=== PATIENT | female | born 1990 | race Caucasian/White ===

== ENCOUNTER 2017-12-21 22:03 | Inpatient (IN) | payer OTHER ==
[2017-12-21] MEDS ORDERED: OXYTOCIN 10 UNIT/ML 1 ML VIAL IM PRN (22:28)
[2017-12-21] MEDS ORDERED: CARBOPROST TROMETHAMINE 250 MCG/ML 1 ML AMP IM PRN (22:28)
[2017-12-21] MEDS ORDERED: LIDOCAINE 0.5% (PF) 5 MG/ML (50 ML SDV) SQ PRN (22:28)
[2017-12-21] MEDS ORDERED: METHYLERGONOVINE 0.2 MG/ML 1 ML AMP IM PRN (22:28)
[2017-12-21] MEDS ORDERED: TERBUTALINE 1 MG/ML VIAL SQ PRN (22:28)
[2017-12-21] MEDS ORDERED: OXYTOCIN 20 UNITS/1000 ML NS 1,000 ML IV SCH (22:30)
[2017-12-21] MEDS: LACTATED RINGERS 1,000 ML IV SCH (22:58)
[2017-12-21 23:06] VITALS: BMI 25.4
[2017-12-21 23:10] LABS: Basophils % (A) 0 %; Eosinophils # (A) 0.2 k/uL (0-0.7); Eosinophils % (A) 2 %; HCT 34.1 % (34.0-46.0); HGB 11.2 gm/dL (11.4-16.0); Lymphocytes # (A) 2.1 k/uL (1.0-4.8); Lymphocytes % (A) 18 %; MCH 28.7 pg (25.0-35.0); MCHC 32.9 g/dL (31.0-37.0); MCV 87.4 fL (80.0-100.0); Monocytes # (A) 0.6 k/uL (0-1.0); Monocytes % (A) 5 %; Neutrophils # (A) 8.9 k/uL (1.3-7.7); Neutrophils % (A) 74 %; Platelet Count 291 k/uL (150-450); RDW 13.7 % (11.5-15.5); WBC 12.1 k/uL (3.8-10.6)
--- NOTE | 2017-12-21 23:59 | P.HPOB ---
History of Present Illness H&P Date: 12/21/17 Chief Complaint: IUP @ 402/7 weeks, active labor This is a 27-year-old 4 para 2011 at 40-2/7 weeks that presents to labor and delivery complaints of painful regular contractions. Patient states she noted contractions early in the day and then they have gotten stronger and more regular. Patient denies vaginal bleeding or loss of fluid. Patient has been receiving routine care with Dr. Kelsey. blood work she has a blood type of Review of Systems Constitutional: Denies chills, Denies fatigue, Denies fever Ears, nose, mouth and throat: Denies headache Cardiovascular: Reports leg edema Respiratory: Denies cough, Denies dyspnea Gastrointestinal: Denies constipation, Denies diarrhea Genitourinary: Reports Past Medical History Past Medical History: No Reported History History of Any Multi-Drug Resistant Organisms: None Reported Past Surgical History: Adenoidectomy, Ear Surgery, Tonsillectomy Past Anesthesia/Blood Transfusion Reactions: No Reported Reaction Past Psychological History: No Psychological Hx Reported Smoking Status: Never smoker Past Alcohol Use History: None Reported Past Drug Use History: None Reported - Past Family History Father Family Medical History: No Reported History Medications and Allergies Home Medications Medication Instructions Recorded Confirmed Type 78/Iron/Folate 1/Dha 1 each PO DAILY 02/09/14 12/21/17 History [Prenate Dha Softgel] Allergies Allergy/AdvReac Type Severity Reaction Status Date / Time No Known Allergies Allergy Verified 12/21/17 22:14 Exam Osteopathic Statement: *. No significant issues noted on an osteopathic structural exam other than those noted in the History and Physical/Consult. Vital Signs Temp Pulse Resp BP Pulse Ox 12/21/17 22:50 96.7 F L 84 16 134/86 100 12/21/17 22:26 96.7 F L 84 16 134/86 100 Intake and Output 12/21/17 12/21/17 12/22/17 14:59 22:59 06:59 Other: Weight 71.668 kg Targeted physical exam was completed in general this is a well-developed well- nourished gravid female in no acute distress, heart is noted to have regular rate and rhythm, lungs are clear to auscultation bilaterally, abdomen is gravid and appropriate for gestational age, on vaginal exam cervix to be 6, 90, -2 station with a bulging bag of water. Amniotomy was performed and clear fluid was obtained. heart tones are noted to be reassuring, with moderate variability, contractions are noted to be every 1-5 minutes. Results Result Diagrams: 12/21/17 22:55 Abnormal Lab Results - Last 24 Hours (Table) 12/21/17 Range/Units 22:55 WBC 12.1 H (3.8-10.6) k/uL Hgb 11.2 L (11.4-16.0) gm/dL Neutrophils # 8.9 H (1.3-7.7) k/uL Assessment and Plan (1) Term Current Visit: Yes Status: Acute Code(s): Z34.80 - ENCOUNTER FOR SUPRVSN OF NORMAL , UNSP TRIMESTER SNOMED Code(s): 51757488 (2) Rh negative, maternal Current Visit: No Status: Acute Code(s): O09.899 - SUPERVISION OF OTHER HIGH RISK PREGNANCIES, UNSP TRIMESTER SNOMED Code(s): 610621864 Plan: We'll admit to labor and delivery for expectant management of labor, patient is uncomfortable and desires epidural which will be placed by anesthesia per patient request. I anticipate spontaneous vaginal delivery this evening.
[2017-12-22] MEDS ORDERED: ACETAMINOPHEN TAB 325 MG TAB PO PRN (01:40)
[2017-12-22] MEDS ORDERED: BENZOCAINE/MENTHOL SPRAY 1 GM/SPRAY AEROSOL TOPICAL PRN (01:40)
[2017-12-22] MEDS ORDERED: SIMETHICONE 80 MG CHEWABLE PO PRN (01:40)
[2017-12-22] MEDS ORDERED: HYDROCORTISONE 2.5% RECTAL CREAM 30 GM TUBE RECTAL PRN (01:40)
[2017-12-22] MEDS ORDERED: diphenhydrAMINE 50 MG CAP PO PRN (01:40)
[2017-12-22] MEDS ORDERED: LANOLIN CREAM 5 GM TUBE TOPICAL PRN (01:40)
[2017-12-22] MEDS ORDERED: ZOLPIDEM 5 MG TAB PO PRN (01:40)
[2017-12-22] MEDS ORDERED: diphenhydrAMINE 50 MG/ML 1 ML VIAL IVP PRN ×2 (01:40)
[2017-12-22] MEDS ORDERED: WITCH HAZEL 1 EACH MED..PAD TOPICAL PRN (01:40)
[2017-12-22] MEDS ORDERED: diphenhydrAMINE 25 MG CAP PO PRN (01:40)
[2017-12-22] MEDS ORDERED: MEASLES-MUMPS-RUBELLA VACC/PF 12,500 UNIT/0.5 ML VIAL SQ ONE (01:43)
[2017-12-22] MEDS ORDERED: OXYTOCIN 20 UNITS/1000 ML NS 1,000 ML IV SCH (01:45)
--- NOTE | 2017-12-22 02:02 | P.PROBDLV ---
Vaginal Delivery Note - . Vaginal Delivery Note: This is a 27-year-old 4 para 2011 at 40-2/7 weeks presented to labor and delivery with complaints of regular strong contractions. Patient was admitted to labor and delivery and requested an epidural for pain control. Patient progressed to complete began pushing and had a normal spontaneous vaginal delivery of a viable female infant at 151, weight of 6 lbs. 14 oz., Apgars of 9 and 9 at one and 5 minutes respectively. Afterwards the placenta was doubly clamped and cut and delivered spontaneously intact with a three- vessel cord. On inspection the patient's vaginal vault no lacerations were noted. The uterus was noted to be firm and below the umbilicus at this time. Estimated blood loss was 200 mL next Patient and infant tolerated delivery well and are resting comfortably
[2017-12-22] MEDS: IBUPROFEN 600 MG TAB PO PRN ×3 (06:12→19:28)
[2017-12-22] MEDS: PRENATAL VIT-IRON-FOLIC ACID 1 EACH CAP PO SCH (08:53)
[2017-12-22] MEDS: SENNOSIDES-DOCUSATE SODIUM 1 EACH TAB PO SCH ×2 (09:00→19:29)
[2017-12-22] MEDS ORDERED: ROPIVACAINE 100 MG, fentaNYL (PF) 200 MCG in SODIUM CHLORIDE 0.9% 76 ML EPIDURAL ONE (10:30)
[2017-12-22] MEDS: LACTATED RINGERS 1,000 ML IV SCH ×2 (21:08→21:09)
[2017-12-23 06:00] LABS: Basophils # (A) 0.1 k/uL (0-0.2); Basophils % (A) 1 %; Eosinophils # (A) 0.3 k/uL (0-0.7); Eosinophils % (A) 3 %; HCT 31.2 % (34.0-46.0); HGB 10.3 gm/dL (11.4-16.0); Lymphocytes # (A) 2.1 k/uL (1.0-4.8); Lymphocytes % (A) 24 %; MCH 28.8 pg (25.0-35.0); MCHC 32.9 g/dL (31.0-37.0); MCV 87.4 fL (80.0-100.0); Mean Platelet Volume 7.3; Monocytes # (A) 0.5 k/uL (0-1.0); Monocytes % (A) 6 %; Neutrophils # (A) 5.7 k/uL (1.3-7.7); Neutrophils % (A) 64 %; Platelet Count 227 k/uL (150-450); RBC 3.57 m/uL (3.80-5.40); RDW 13.8 % (11.5-15.5); WBC 8.9 k/uL (3.8-10.6)
[2017-12-23] MEDS: SENNOSIDES-DOCUSATE SODIUM 1 EACH TAB PO SCH (08:03)
[2017-12-23] MEDS: IBUPROFEN 600 MG TAB PO PRN (08:03)
[2017-12-23 08:50] VITALS: BP 113/81; PULSE 81; RESP 18; TEMP 98.2
--- NOTE | 2017-12-23 10:14 | P.DS ---
Providers Date of admission: 12/21/17 22:32 Expected date of discharge: 12/23/17 Attending physician: Sally Kelsey Primary care physician: Stated None - Discharge Diagnosis(es) (1) Normal spontaneous vaginal delivery Current Visit: No Status: Acute Hospital Course: The patient is a 27-year-old 4 para 2011 admitted at 40-2/7 weeks by good dating parameters perches admitted in active labor with all signs reassuring. Her has been uncomplicated and group B strep status is negative. She was known to be Rh- and received RhoGAM at 28 weeks. On labor and delivery, the patient made good progress on her own to complete and then pushed to a normal spontaneous vaginal delivery of a viable 6 lbs. 14 oz. AB girl with Apgars of 9 at 1 minute and 9 at 5 minutes. Her course was unremarkable with vital signs remaining stable and her temperature was afebrile throughout. She was deemed stable for discharge on day #1 was discharged home to follow-up in the office in 6 weeks' time routinely. Discharge instructions included calling for any significantly increased bleeding or foul-smelling lochia, significantly increased fever or abdominal pain, perineal complaints, breast complaints, or anything else that concerned her. She was additionally instructed to have nothing in the vagina for at least 6 weeks time to include intercourse. She understood her instructions and agrees to follow up as noted above. Discharge medications included continued vitamins as she has opted to breast-feed. She otherwise was to use [id number] analgesic pain medications as needed. Maternal blood type is Rh- and cord blood was sent for evaluation for the necessity of RhoGAM prior to discharge. Rubella status is immune. Procedures: #1. Normal spontaneous vaginal delivery Patient Condition at Discharge: Good Plan - Discharge Summary New Discharge Prescriptions: No Action 78/Iron/Folate 1/Dha [Prenate Dha Softgel] 1 each PO DAILY Discharge Medication List 78/Iron/Folate 1/Dha [Prenate Dha Softgel] 1 each PO DAILY 02/09/14 [ History] Follow up Appointment(s)/Referral(s): Sally Kelsey MD [STAFF PHYSICIAN] - 6 Weeks Discharge Disposition: HOME SELF-CARE
[2017-12-23] MEDS: PRENATAL VIT-IRON-FOLIC ACID 1 EACH CAP PO SCH (12:05)
--- NOTE | 2017-12-25 08:58 | P.MSEPDOC ---
Presenting Problems - Arrival Data Date of Arrival on Unit: 12/21/17 Time of Arrival on Unit: 22:03 Mode of Transport: Wheelchair - Complaint OB-Reason for Admission/Chief Complaint: Possible Onset of Labor Medical History - Information : 4 Para: 2 Term: 2 : 0 Abortions: Spontaneous or Elective: 1 Number of Living Children: 2 - Gestational Age Gestational Age by MALLORY (wks/days): 40 Weeks and 2 Days Review of Systems - Review of Systems Constitutional: No problems Breast: No problems ENT: No problems Cardiovascular: No problems Respiratory: No problems Gastrointestinal: No problems Genitourinary: No problems Musculoskeletal: No problems Neurological: No problems Skin: No problems Vital Signs - Temperature Temperature: 98.2 F Temperature Source: Oral - Pulse Right Brachial Pulse Rate: 81 Pulse Assessment Method: Automatic Cuff - Respirations Respiratory Rate: 18 Oxygen Delivery Method: Room Air - Blood Pressure Right Arm Blood Pressure: 113/81 Blood Pressure Mean: 91 Blood Pressure Source: Automatic Cuff Medical Screen Scoring (Pre) - Cervical Exam Dilation: 4-7 cm = 2 Membranes: Intact - Uterine Contractions Frequency: > or = 36 weeks =2 Duration: N/A Intensity: N/A - Maternal Vital Signs Maternal Temperature: N/A Maternal Blood Pressure: N/A Signs of Preeclampsia: N/A Maternal Respirations: N/A - Pain Assessment Pain Location and Character: Abdomen Pain Scale Used: Numeric (1 - 10) Pain Intensity: 9 Pain Description: *Acute, Cramping Pain Frequency: Intermittent Pain Duration Units: Minutes Pain Behavior: Facial Grimacing, Vocalization Pain Aggravating Factors: Contractions - Maternal Trauma Maternal Trauma: N/A - Assessment Baseline FHR: 125 Heart Rate - NICHD Category: Category I (Normal) = 0 NST: Reactive Position: N/A Station: N/A - Total Score Total Score (Pre): 4 - Level of Risk Level of Risk: Low (0-5) Physician Notification (Pre) - Physician Notified Physician Notified Date: 12/21/17 Physician Notified Time: 22:26 Physician/Practitioner Notifed:: Dr. Bauman Spoke With: Dr. Bauman New Order Received: Yes - Notification Comment Comment: Dr. Bauman called and given report on pt in triage. Pt c/o. vs wnl. gbs neg. Vag exam of 4.5/80/-2. Orders recieved to admit pt to unit. pt may have stadol and or epidural for pain. Disposition - Disposition OB Disposition: Admit, LDRP Suite Discharge Date: 12/23/17 Discharge Time: 12:30 I agree with the RN Medical Screening Exam: Yes Risk & Benefit of care provided described in d/c instruction: Yes Diagnosis: LOUSE-BORNE TYPHUS
== END 2017-12-23 12:31 | disposition home or self-care (01) | DRG 807 ==
LOC: FBPOP 22:03 → 4FBP 22:32
PROVIDERS: ADMIT Obstetrics & Gynecology Obstetrics; ATTEND Obstetrics & Gynecology
PROC: 10E0XZZ Delivery of Products of Conception, External Approach (ICD-10-PCS; principal; 2017-12-21)
PROC: 00HU33Z Insertion of Infusion Device into Spinal Canal, Percutaneous Approach (ICD-10-PCS; principal; 2017-12-21)
PROC: 3E0R3NZ Introduction of Analgesics, Hypnotics, Sedatives into Spinal Canal, Percutaneous Approach (ICD-10-PCS; principal; 2017-12-21)
PROC: 10907ZC Drainage of Amniotic Fluid, Therapeutic from Products of Conception, Via Natural or Artificial Opening (ICD-10-PCS; principal; 2017-12-21)
DX: O80 Encounter for full-term uncomplicated delivery (principal); Z37.0 Single live birth; Z3A.40 40 weeks gestation of pregnancy
CPT/HCPCS: 59025; 85025; 86850; 86900; 86901; 99213

== ENCOUNTER → 2023-11-27 | Outpatient (CLI) | payer OTHER ==
--- NOTE | 2023-11-27 15:16 | CA ---
Transthoracic Echo Report Name: Cat Mckenzie Age: 33 Gender: F : 1990 Exam Date: 11/27/2023 11:35 Exam Location: [place] [facility] Ht (in): 66 Wt (lb): 150 Ordering Physician: Stephen Nichols MD Attending/Referring Phys: Stephen Nichols MD Tool Shaper Setup Operator Leticia Baeza, DARRYL Procedure CPT: Indications: I34.0 NONRHEUMATIC MITRAL (VALVE) INSUFFICIENCY Cardiac Hx: Technical Quality: Good Contrast 1: Total Dose (mL): Contrast 2: Total Dose (mL): MEASUREMENTS (Male / Female) Normal Values 2D ECHO LV Diastolic Diameter PLAX 4.2 cm 4.2 - 5.9 / 3.9 - 5.3 cm LV Systolic Diameter PLAX 3.0 cm IVS Diastolic Thickness 0.8 cm 0.6 - 1.0 / 0.6 - 0.9 cm LVPW Diastolic Thickness 0.9 cm 0.6 - 1.0 / 0.6 - 0.9 cm LV Relative Wall Thickness 0.4 RV Internal Dim ED PLAX 2.9 cm LA Systolic Diameter LX 3.2 cm 3.0 - 4.0 / 2.7 - 3.8 cm LV Diastolic Volume MOD BP 76.7 cm??? 67 - 155 / 56 - 104 cm??? LV Systolic Volume MOD BP 26.9 cm??? - / 19 - 49 cm??? LV Ejection Fraction MOD BP 65.0 % >= 55 % LV Cardiac Index MOD BP 1476.7 cm???/min???m??? LV Diastolic Volume MOD 4C 88.6 cm??? LV Systolic Volume MOD 4C 25.9 cm??? LV Ejection Fraction MOD 4C 70.8 % LV Cardiac Index MOD 4C 1860.3 cm???/min???m??? LV Diastolic Length 4C 8.1 cm LV Systolic Length 4C 6.1 cm LV Diastolic Volume MOD 2C 62.7 cm??? LV Systolic Volume MOD 2C 25.6 cm??? LV Ejection Fraction MOD 2C 59.2 % LV Cardiac Index MOD 2C 1099.2 cm???/min???m??? LV Diastolic Length 2C 7.6 cm LV Systolic Length 2C 6.7 cm LA Volume 47.9 cm??? 18 - 58 / 22 - 52 cm??? LA Volume Index 26.8 cm???/m??? 16 - 28 cm???/m??? M-MODE Aortic Root Diameter MM 2.2 cm LA Systolic Diameter MM 3.1 cm LA Ao Ratio MM 1.4 AV Cusp Separation MM 1.4 cm DOPPLER AV Peak Velocity 171.8 cm/s AV Peak Gradient 11.8 mmHg AV Mean Velocity 117.5 cm/s AV Mean Gradient 6.2 mmHg AV Velocity Time Integral 45.0 cm MV Area PHT 2.4 cm??? Mitral E Point Velocity 115.8 cm/s Mitral A Point Velocity 49.0 cm/s Mitral E to A Ratio 2.4 MV Deceleration Time 321.8 ms TR Peak Velocity 233.4 cm/s TR Peak Gradient 21.8 mmHg FINDINGS Left Ventricle Left ventricular ejection fraction is estimated at 60-65%.Normal Left ventricular size, wall thickness, systolic function with no obvious regional wall motion abnormalities. Normal Left ventricular diastolic filling pattern. Right Ventricle Normal right ventricular size and function. Right ventricular systolic pressure within normal limits. Right Atrium Normal right atrial size. Left Atrium Normal left atrial size. Mitral Valve Structurally normal mitral valve. Mild mitral regurgitation. No mitral stenosis. Aortic Valve Trileaflet aortic valve. No aortic valve stenosis or regurgitation. Tricuspid Valve Structurally normal tricuspid valve. Mild tricuspid regurgitation. No tricuspid stenosis. Pulmonic Valve Structurally normal pulmonic valve. Mild pulmonic regurgitation. No pulmonic stenosis. Pericardium No pericardial or pleural effusion. Aorta Normal size aortic root and proximal ascending aorta. CONCLUSIONS Left ventricular ejection fraction 60-65% RVSP 21 Mild mitral regurgitation Mild tricuspid regurgitation Previewed by: Dr. Doc Lombardo DO (Electronically Signed) Final Date: 27 November 2023 15:15
== END | disposition home or self-care (01) ==
LOC: RADECHMAIN 11:32
PROVIDERS: ATTEND Internal Medicine
DX: I34.0 Nonrheumatic mitral (valve) insufficiency (principal)
CPT/HCPCS: 93306